=== PATIENT | male | born 1955 | race Caucasian/White ===

== ENCOUNTER 2022-12-21 05:33 | Inpatient (IN) | payer OTHER, MEDICAID ==
[~2022-12-21] VITALS: Ht 167.6 cm; Wt 79.4 kg
[~2022-12-21 05:33] MED LIST: ATOR20TA65 PO; PEG15DRO14 BOTHEYE
[2022-12-21] MEDS ORDERED: NON FORMULARY PATIENT HOME MED XX SCH (06:45)
[2022-12-21] MEDS: LACTATED RINGERS 1,000 ML IV SCH (07:00)
[2022-12-21] MEDS ORDERED: BUPIVACAINE HCL 300 MG IMPLANT(XARACOLL) IL NR (07:00)
[2022-12-21] MEDS ORDERED: SKIN ADHESIVE 0.7 GM EA TOP ONE (07:14)
[2022-12-21] MEDS ORDERED: BUPIVACAINE HCL/PF 0.5% (5MG/ML) 30ML ONE (07:14)
[2022-12-21] MEDS ORDERED: DEXAMETHASONE 4MG/ML 1ML VIAL ONE (07:24)
[2022-12-21] MEDS ORDERED: ONDANSETRON HCL 4MG/2ML INJ ONE (07:24)
[2022-12-21] MEDS ORDERED: LIDOCAINE HCL 1% 10 MG/ML 10ML VIAL ONE (07:24)
[2022-12-21] MEDS ORDERED: PROPOFOL 200MG/20ML VIAL IV ONE (07:25)
[2022-12-21] MEDS ORDERED: FENTANYL CITRATE/PF 50MCG/ML 2ML VIAL ONE (07:25)
[2022-12-21] MEDS ORDERED: MIDAZOLAM HCL 2 MG/2 ML VIAL ONE (07:25)
[2022-12-21] MEDS ORDERED: ONDANSETRON HCL 4MG/2ML INJ IV PRN ×2 (07:45→15:30)
[2022-12-21] MEDS ORDERED: LABETALOL 5MG/ML SYR 20 MG/4 ML SYRINGE IV PRN (07:45)
[2022-12-21] MEDS ORDERED: HYDROMORPHONE HCL/PF 2MG/ML CPJ IV PRN (07:45)
[2022-12-21] MEDS ORDERED: MEPERIDINE HCL/PF 25MG/ML CPJ IV PRN (07:45)
[2022-12-21 11:33] LABS: HEMATOCRIT. 44.1 % (42.0-52.0); HEMOGLOBIN. 14.3 g/dL (14.0-18.0); MEAN CORPUSCULAR HEMOGLOBIN 27.1 pg (28.0-32.0); MEAN CORPUSCULAR VOLUME 83.6 fL (80.0-94.0); MEAN PLATELET VOLUME 7.9 fl (7.4-10.4); PLATELET 312 x1000/uL (130-400); RED BLOOD CELL COUNT 5.27 mill/uL (4.7-6.1); RED CELL DISTRIBUTION WIDTH 14.4 % (11.6-14.6)
[2022-12-21 12:52] LABS: CHLORIDE 107 mEq/L (98-107)
[2022-12-21 14:03] LABS: PLATELET ESTIMATE NORMAL
[2022-12-21] MEDS ORDERED: HYDROCODONE/ACETAMINOPHEN 5/325MG TABLET PO PRN ×2 (15:30)
[2022-12-21] MEDS ORDERED: NALOXONE HCL 0.4MG/ML VIAL IV PRN (15:45)
[2022-12-21 18:31] VITALS: BP 138/88
[2022-12-21 20:31] VITALS: BP 136/93
[2022-12-22] VITALS: BP 144/93
[2022-12-22 04:00] VITALS: BP 151/88
[2022-12-22 05:50] LABS: HEMATOCRIT. 43.8 % (42.0-52.0); HEMOGLOBIN. 14.4 g/dL (14.0-18.0); MEAN CORPUSCULAR VOLUME 82.3 fL (80.0-94.0); MEAN PLATELET VOLUME 8.3 fl (7.4-10.4); PLATELET 313 x1000/uL (130-400); RED BLOOD CELL COUNT 5.32 mill/uL (4.7-6.1); RED CELL DISTRIBUTION WIDTH 14.2 % (11.6-14.6)
[2022-12-22 06:18] LABS: CHLORIDE 104 mEq/L (98-107)
[2022-12-22 08:00] VITALS: BP 129/70
[2022-12-22] MEDS: LACTATED RINGERS 1,000 ML IV SCH ×2 (09:12→11:42)
[2022-12-22 09:35] LABS: PLATELET ESTIMATE NORMAL
[2022-12-22] MEDS ORDERED: REGADENOSON 0.4 MG/5 ML IV NR (11:15)
[2022-12-22 11:41] VITALS: BP 135/83
[2022-12-22 16:00] VITALS: BP 153/79
[2022-12-22 16:46] LABS: CLARITY URINE CLEAR (CLEAR); COLOR URINE YELLOW (YELLOW); KETONES URINE NEGATIVE (NEGATIVE); LEUKOCYTE ESTERASE URINE NEGATIVE (NEGATIVE); NITRITE URINE NEGATIVE (NEGATIVE); OCCULT BLOOD URINE NEGATIVE (NEGATIVE); PROTEIN URINE NEGATIVE (NEGATIVE); SPECIFIC GRAVITY URINE 1.012 (1.005-1.030); UROBILINOGEN URINE 0.2 E.U./dL (0.2-1.0)
[2022-12-22 16:58] LABS: *AMPHETAMINES SCREEN URINE NEGATIVE (NEGATIVE); *BARBITURATES SCREEN URINE NEGATIVE (NEGATIVE); *BENZODIAZEPINES SCREEN URINE NEGATIVE (NEGATIVE); *COCAINE SCREEN URINE NEGATIVE (NEGATIVE); CANNABINOID URINE SCREEN NEGATIVE (NEGATIVE); METHADONE URINE SCREEN NEGATIVE (NEGATIVE); OPIATES URINE SCREEN PRESUMTIVE POSITIVE (NEGATIVE); PHENCYCLIDINE URINE SCREEN NEGATIVE (NEGATIVE)
[2022-12-22 20:00] VITALS: BP 129/79
[2022-12-23] VITALS: BP 130/81
[2022-12-23 04:03] VITALS: BP 138/82
[2022-12-23 08:00] VITALS: BP 132/77
[2022-12-23 12:00] VITALS: BP 126/72
[2022-12-23 12:36] VITALS: BP 117/65
== END 2022-12-23 13:00 | disposition home or self-care (01) | DRG 352 ==
LOC: OR 05:33 → 3WST 18:10
PROVIDERS: ADMIT Surgery; ATTEND Surgery
PROC: 0YU60JZ Supplement Left Inguinal Region with Synthetic Substitute, Open Approach (ICD-10-PCS; principal; 2022-12-21)
DX: K40.90 Unilateral inguinal hernia, without obstruction or gangrene, not specified as recurrent (principal); E78.5 Hyperlipidemia, unspecified; I10 Essential (primary) hypertension; Z79.899 Other long term (current) drug therapy; Z20.822 Contact with and (suspected) exposure to COVID-19
CPT/HCPCS: 36415; 78452; 80048; 80305; 81003; 84484; 85025; 87426; 93005; 93017; 93306; A9500; C1781; C9803; J1100; J1170; J2250; J2405; J2704; J2785; J3010; J3490; C9089